=== PATIENT | male | born 1935 | race Caucasian/White ===

== ENCOUNTER 2016-11-24 05:35 | Day surgery (SDC) | payer MEDICARE, OTHER ==
[2016-11-24] MEDS ORDERED: TROP 1%/CYCLOPEN 1%/PHENYL 2% DROPS ONE (06:18)
[2016-11-24] MEDS ORDERED: TROP 1%/CYCLOPEN 1%/PHENYL 2% DROPS OPHTH ONE (06:30)
[2016-11-24] MEDS: TOBRAMYCIN SULF 0.3 % OPHT SOL 1 DROP LEFT_EYE ONE ×2 (06:30→07:55)
[2016-11-24] MEDS: PROPARACAINE 0.5% OPHTH SOL 15 ML BTTL ONE ×4 (06:30→12:10)
[2016-11-24] MEDS ORDERED: MIDAZOLAM INJ 5 MG/5 ML VIAL ONE (06:59)
[2016-11-24] MEDS ORDERED: LIDOCAINE 1% PF 2 ML AMP INJ ONE (07:34)
[2016-11-24] MEDS ORDERED: DEXAMETHASONE 0.1% OPHTH SOL 1 DROP LEFT_EYE ONE (07:55)
[2016-11-24] MEDS ORDERED: BRIMONIDINE 0.2% OPHTH DROPS LEFT_EYE ONE (07:55)
[2016-11-24 15:22] VITALS: BP 190/80; TEMP 97.4; O2SAT 97
== END 2016-11-24 08:37 ==
LOC: AMB 05:35
PROVIDERS: ATTEND Ophthalmology
DX: H25.12 Age-related nuclear cataract, left eye (principal)
CPT/HCPCS: 36416; 66984; 82948; J2250